=== PATIENT | female | born 1965 | race Caucasian/White ===

== ENCOUNTER 2018-05-26 07:09 | Inpatient (IN) ==
[2018-05-26] MEDS ORDERED: Acetaminophen 325 MG Tablet PO PRN (11:28)
[2018-05-26] MEDS ORDERED: Bisacodyl 10 MG Supp RECTAL PRN (11:28)
--- NOTE | 2018-05-26 15:21 | P.HP ---
History of Present Illness Primary Care Physician: UNKNOWN Chief Complaint: Abdominal pain History of Present Illness: 52-year-old female with known history of kidney stones, Gastrosoft reflux who presented to hospital with acute onset of right upper abdominal pain , nausea, vomiting, diarrhea. Patient states that she is normal state of health until 3 AM this morning when she woke up with a discomfort in her abdomen. She indicates that she thought that she had to go to the bathroom so she went into the restroom and noted that she was constipated and then got sudden pain in her right upper abdomen radiating into her back. Shortly after that she started having loose stools which continued into watery diarrhea. She started developing nausea and vomiting and because of the pain, intractable nausea, vomiting, diarrhea she went to the emergency department for evaluation. Patient had workup done and shows acute signs of dehydration with renal insufficiency, leukocytosis. Urinalysis does indicate signs of urinary tract infection. CT scan showing chronic staghorn calculus in the left lower pole without any signs of urinary obstruction. It was recommended by the ER physician that the patient be observed in the hospital for continued management. Patient does have extensive history of renal lithiasis. States that approximately a year ago she required a nephrostomy tube on the left side with percutaneous removal of a stone. The patient had nephrostomy tube removed. Patient states that approximately a year ago she also had complications with renal lithiasis and was told that she continue to have a stone at that time, however she deferred nephrostomy tube. - Diagnosis (1) Pyelonephritis (2) Leukocytosis Review of Systems All other systems reviewed negative except as stated in HPI Gastrointestinal: Reports abdominal pain, Reports loose stools, Reports nausea, Reports vomiting PMFSH - History History Provided By: Patient - Medical History Medical History: Medical History (Last Reviewed 05/26/18 @ 15:12 by PEACE Meza) GERD (gastroesophageal reflux disease) Kidney stones - Surgical History Surgical History: Surgical History (Last Updated 05/26/18 @ 15:13 by PEACE Meza) History of nephrostomy H/O tubal ligation - Family History Family History: Family History (Last Updated 05/26/18 @ 15:13 by PEACE Meza) Father Family history of diabetes mellitus - Tobacco History Second Hand Smoke Exposure: Yes Smoking Status: Current every day smoker Tobacco Type: Cigarettes - Alcohol History How Often Do You Have a Drink Containing Alcohol: Monthly or less - Substance Use History Substance History: No History of Abuse Medications and Allergies Active Medications: Active Medications Acetaminophen (Tylenol) 650 mg PO Q4H PRN PRN Reason: Temp > 100.4 Al Hydroxide/Mg Hydroxide (Milk Of Magnesia Liq) 30 ml PO Q12H PRN PRN Reason: Mild Constipation Bisacodyl (Dulcolax Supp) 10 mg RECTAL DAILY PRN PRN Reason: SEVERE CONSITIPATION Enoxaparin Sodium (Lovenox Inj) 30 mg SQ Q24H CUBA Sodium Chloride (Ns Inj) 1,000 mls @ 100 mls/hr IV.CONT .Q10H CUBA Piperacillin/Tazobactam/Dextrose (Zosyn 3.375 Gm Premix) 50 mls @ 100 mls/hr IV.SIG Q8H CUBA Lactulose (Lactulose Liq) 30 ml PO DAILY PRN PRN Reason: SEVERE CONSITIPATION Ondansetron HCl (Zofran Inj) 4 mg IV.PUSH Q6H PRN PRN Reason: NAUSEA OR VOMITING Senna/Docusate Sodium (Ann-Colace) 1 tab PO BID CUBA Sennosides (Senokot) 17.2 mg PO Q12H PRN PRN Reason: Moderate Constipation Sodium Chloride (Ns Flush) 2 ml IV.FLUSH BID CUBA Sodium Chloride (Ns Flush) 2 ml IV.FLUSH PRN PRN PRN Reason: FLUSH AFTER USING IV ACCESS Allergies Allergy/AdvReac Type Severity Reaction Status Date / Time iodine Allergy Severe Hives Verified 05/26/18 07:31 Home Medications Medication Instructions Recorded Confirmed Type esomeprazole magnesium [Nexium] 40 mg PO DAILY 05/26/18 05/26/18 History Exam Narrative: GENERAL: Well-developed, well-nourished, in no acute distress. alert and orientated HEENT: Head is normocephalic without any lesions or masses noted. Facial features are symmetric. Eyes: Pupils equal round reactive to light. Extraocular muscles are intact. Conjunctivae were clear. Oropharyngeal: Pharynx without any erythema edema. Tongue is midline without deviation. Buccal mucosa is moist without any masses or lesions NECK: Supple without any masses. Trachea midline no deviation. No JVD, no bruits are appreciated CARDIAC: Regular rhythm, regular rate. S1/S2 are heard. No murmurs gallops or rubs. LUNGS: Clear to auscultation bilaterally. No wheeze, rhonchi or rales. No use of accessory muscles on inspiration or expiration. ABDOMEN: Soft, nontender. Nondistended. Bowel sounds heard in all 4 quadrants. No organomegaly or masses. Negative rebound, negative guarding EXTREMITIES: No edema, pulses are equal bilaterally. No cyanosis or clubbing NEUROLOGY: Mood and affect appear appropriate. Cranial nerves II through XII grossly intact. Muscle strength 5/5 in upper and lower extremities bilaterally. Deep tendon reflexes are 2+ in upper and lower extremities bilaterally. Caprini VTE Risk Assessment Caprini VTE Risk Assessment: No/Low Risk (score <= 1) Caprini Risk Assessment Model: Point Value = 1 Point Value = 2 Point Value = 3 Point Value = 5 Age 41-60 Minor surgery BMI > 25 kg/m2 Swollen legs Varicose veins or History of unexplained or recurrent spontaneous Oral contraceptives or hormone replacement Sepsis (< 1 month) Serious lung disease, including pneumonia (< 1 month) Abnormal pulmonary function Acute myocardial infarction Congestive heart failure (< 1 month) History of inflammatory bowel disease Medical patient at bed rest Age 61-74 Arthroscopic surgery Major open surgery (> 45 min) Laparoscopic surgery (> 45 min) Malignancy Confined to bed (> 72 hours) Immobilizing plaster cast Central venous access Age >= 75 History of VTE Family history of VTE Factor V Leiden Prothrombin [id number] Lupus anticoagulant Anticardiolipin antibodies Elevated serum homocysteine Heparin-induced thrombocytopenia Other congenital or acquired thrombophilia Stroke (< 1 month) Elective arthroplasty Hip, pelvis, or leg fracture Acute spinal cord injury (< 1 month) Prophylaxis Regimen: Total Risk Factor Score Risk Level Prophylaxis Regimen 0-1 Low Early ambulation 2 Moderate Order ONE of the following: *Sequential Compression Device (SCD) *Heparin 5000 units SQ BID 3-4 Higher Order ONE of the following medications: *Heparin 5000 units SQ TID *Enoxaparin/Lovenox 40 mg SQ daily (WT < 150 kg, CrCl > 30 mL/min) *Enoxaparin/Lovenox 30 mg SQ daily (WT < 150 kg, CrCl > 10-29 mL/min) *Enoxaparin/Lovenox 30 mg SQ BID (WT < 150 kg, CrCl > 30 mL/min) AND/OR *Sequential Compression Device (SCD) 5 or more Highest Order ONE of the following medications: *Heparin 5000 units SQ TID (Preferred with Epidurals) *Enoxaparin/Lovenox 40 mg SQ daily (WT < 150 kg, CrCl > 30 mL/min) *Enoxaparin/Lovenox 30 mg SQ daily (WT < 150 kg, CrCl > 10-29 mL/min) *Enoxaparin/Lovenox 30 mg SQ BID (WT < 150 kg, CrCl > 30 mL/min) AND *Sequential Compression Device (SCD) Assessment and Plan - Assessment (1) Pyelonephritis Code(s): N12 - Tubulo-interstitial nephritis, not specified as acute or chronic Status: Acute (2) Leukocytosis Code(s): D72.829 - Elevated white blood cell count, unspecified Status: Acute - Plan Pyelonephritis -Patient does have urinary tract infection with significant leukocytosis -Patient started on empirical antibiotic with Zosyn -Continue to monitor cultures for appropriate antibiotics Nausea, vomiting, diarrhea -Possible gastroenteritis -Continue IV fluids -Continue antiemetic -Advance diet as tolerated -Obtain C. difficile culture Azotemia -Likely secondary to the above -Continue monitor renal function Leukocytosis -Multifactorial with patient having infection, dehydration, possible reactive to nausea, vomiting -Patient is on empirical antibiotics -Continue monitor CBC Gastroesophageal reflux -Continue proton pump inhibitor DVT prevention -Subcutaneous Lovenox -Sequential compression devices
[2018-05-26] MEDS: Piperacil/Tazo 3.375 GM Premix 50 ML IV.SIG SCH ×2 (17:05→21:56)
[2018-05-26] MEDS: Enoxaparin Inj 30 MG/0.3 ML Syringe SQ SCH (17:23)
[2018-05-26] MEDS: Sod Chloride 0.9% Inj 1,000 ML IV.CONT SCH ×2 (17:23→22:45)
[2018-05-26 20:19] LABS: Bilirubin,Urine Negative (Negative); Clarity,Urine Cloudy (Clear); Color,Urine Yellow (Yellw/Straw); Glucose,Urine (UA) Negative (Negative); Leukocyte Esterase,Urine Moderate (Negative); Nitrite,Urine Negative (Negative); Urobilinogen,Urine 0.2 mg/dL (Less than 2)
[2018-05-26 20:23] LABS: Amorphous Sediment,Urine Few /hpf; Bacteria,Urine Occasional /hpf; Squamous Epithelial Cell,Urine 0-5 /hpf (0-5); WBC,Urine 21-50 /hpf (0-5)
[2018-05-26] MEDS: Senna/Docusate Sodium 8.6/50 MG Tablet PO SCH (20:54)
[2018-05-27] MEDS: Piperacil/Tazo 3.375 GM Premix 50 ML IV.SIG SCH ×3 (04:05→21:09)
[2018-05-27] MEDS: Sod Chloride 0.9% Inj 1,000 ML IV.CONT SCH (04:05)
[2018-05-27 06:40] LABS: Baso % (Auto) 0.2 % (0.0-2.0); Eos # (Auto) 0.2 th/mm3 (0.0-0.4); Eos % (Auto) 2.7 % (0.0-4.0); Hematocrit 35.2 % (35.0-46.0); Hemoglobin 11.3 gm/dL (11.6-15.3); Lymph # (Auto) 2.3 th/mm3 (1.0-4.8); Lymph % (Auto) 26.7 % (9.0-44.0); Mean Corpuscular HGB Conc 32.1 % (32.0-36.0); Mean Corpuscular Hemoglobin 28.2 pg (27.0-34.0); Mean Platelet Volume 8.1 fL (7.0-11.0); Mono # (Auto) 0.5 th/mm3 (0.0-0.9); Mono % (Auto) 5.9 % (0.0-8.0); Neut # (Auto) 5.6 th/mm3 (1.8-7.7); Neut % (Auto) 64.5 % (16.0-70.0); Platelet Count 286 th/mm3 (150-450); Red Cell Distribution Width 14.2 % (11.6-17.2); White Blood Count 8.6 th/mm3 (4.0-11.0)
[2018-05-27 07:27] LABS: Calcium 7.4 mg/dL (8.5-10.1); Carbon Dioxide 26.4 meq/L (21.0-32.0)
[2018-05-27 07:42] LABS: Albumin 2.6 g/dL (3.4-5.0); Calcium-Albumin Corrected 8.5 mg/dL (8.5-10.1)
--- NOTE | 2018-05-27 08:09 | P.PNIM ---
Subjective Interval history: 52-year-old female who is seen examined today for pyelonephritis, intractable nausea and vomiting, diarrhea. Patient states that she is doing much better. She is no longer having any nausea vomiting. Tolerating liquid diet. She states that she still having loose stools. Vital signs are stable. Patient remains afebrile. Physical Exam Vital signs: Vital Signs 05/26/18 15:01 05/26/18 20:00 05/27/18 00:00 Temperature 98.3 F 98.8 F 99.3 F Pulse Rate 80 81 80 Respiratory Rate 20 20 20 Blood Pressure 138/74 134/66 119/57 L Pulse Oximetry 97 97 96 Intake & Output 05/26/18 05/27/18 05/27/18 18:59 06:59 18:59 Intake Total 300 / 300 1150 / 1150 Output Total 200 / 200 Balance 100 / 100 1150 / 1150 Weight 97.6 kg Intake: IV 1150 / 1150 NS Inj 1,000 ML @ 100 mls/hr IV 1000 / 1000 .CONT .Q10H CUBA Rx#:[id number] Zosyn 3.375 GM Premix 50 ML @ 150 / 150 100 mls/hr IV.SIG Q8H CUBA Rx#: [id number] Oral 300 / 300 Output: Urine 200 / 200 Other: # Voids 3 Date of Last Bowel Movement 05/26/18 Narrative: GENERAL: Well-developed, well-nourished, in no acute distress. alert and orientated HEENT: Head is normocephalic without any lesions or masses noted. Facial features are symmetric. Eyes: Extraocular muscles are intact. Conjunctivae were clear. NECK: Supple without any masses. Trachea midline no deviation. No JVD, CARDIAC: Regular rhythm, regular rate. S1/S2 are heard. No murmurs gallops or rubs. LUNGS: Clear to auscultation bilaterally. No wheeze, rhonchi or rales. No use of accessory muscles on inspiration or expiration. ABDOMEN: Soft, nontender. Nondistended. Bowel sounds heard in all 4 quadrants. No organomegaly or masses. Negative rebound, negative guarding EXTREMITIES: No edema, pulses are equal bilaterally. No cyanosis or clubbing NEUROLOGY: Mood and affect appear appropriate. Cranial nerves II through XII grossly intact. Moving all extremities, speech is clear Results - Labs CBC & Chem 7: 05/27/18 04:58 05/27/18 04:58 Laboratory Results - last 24 hr 05/26/18 05/27/18 05/27/18 20:00 04:58 04:58 CBC w Diff Auto diff final WBC 8.6 D RBC 4.00 Hgb 11.3 L D Hct 35.2 MCV 88.0 MCH 28.2 MCHC 32.1 RDW 14.2 Plt Count 286 MPV 8.1 Neut % (Auto) 64.5 Lymph % (Auto) 26.7 [place] % (Auto) 5.9 Eos % (Auto) 2.7 Baso % (Auto) 0.2 Neut # (Auto) 5.6 Lymph # (Auto) 2.3 [place] # (Auto) 0.5 Eos # (Auto) 0.2 Baso # (Auto) 0.0 WBC Differential . Differential Comment . Sodium 142 Potassium 3.0 L Chloride 107 Carbon Dioxide 26.4 Anion Gap 9 BUN 14 Creatinine 0.74 Estimated GFR 82 L Random Glucose 80 Calcium 7.4 L* D Calcium Adj for Albumin 8.5 Albumin 2.6 L D Urine Color Yellow Urine Clarity Cloudy H Urine pH 6.0 Ur Specific [place] 1.020 Urine Protein Negative Urine Glucose (UA) Negative Urine Ketones Negative Urine Occult Blood Large H Urine Nitrate Negative Urine Bilirubin Negative Urine Urobilinogen 0.2 Ur Leukocyte Esterase Moderate H Urine RBC 4-15 H Urine WBC 21-50 H Urine WBC Clumps Few H Ur Squamous Epith Cells 0-5 Amorphous Sediment Few H Urine Bacteria Occasional H Micro UA Comment Culture indicated Ur Microscopic Review Microscopic reviewed Urine Culture Comments Culture indicated Assessment and Plan - Assessment (1) Pyelonephritis Code(s): N12 - Tubulo-interstitial nephritis, not specified as acute or chronic Status: Inactive (2) Leukocytosis Code(s): D72.829 - Elevated white blood cell count, unspecified Status: Acute - Plan Pyelonephritis -Patient does have urinary tract infection with significant leukocytosis -Continue empirical antibiotic with Zosyn -Continue to monitor cultures for appropriate antibiotics Nausea, vomiting, resolved -Possible gastroenteritis -Continue IV fluids -Continue antiemetic -Advance diet as tolerated Diarrhea -Awaiting C. difficile results Azotemia, resolved -Likely secondary to the above -Continue monitor renal function Leukocytosis, resolved -Multifactorial with patient having infection, dehydration, possible reactive to nausea, vomiting -Patient is on empirical antibiotics -Continue monitor CBC Gastroesophageal reflux -Continue proton pump inhibitor DVT prevention -Subcutaneous Lovenox -Sequential compression devices Discharge Planning: Anticipate discharge once urine culture is final for appropriate antibiotics within the 24-48 hours
[2018-05-27] MEDS: Senna/Docusate Sodium 8.6/50 MG Tablet PO SCH ×2 (09:39→21:10)
[2018-05-27] MEDS: Enoxaparin Inj 30 MG/0.3 ML Syringe SQ SCH (15:42)
[2018-05-28] MEDS: Piperacil/Tazo 3.375 GM Premix 50 ML IV.SIG SCH (04:31)
[2018-05-28] MEDS: Senna/Docusate Sodium 8.6/50 MG Tablet PO SCH (08:07)
[2018-05-28 08:27] VITALS: BP 136/74; PULSE 63; RESP 20; TEMP 96.6; O2SAT 97
--- NOTE | 2018-05-28 08:30 | P.DS ---
Date of admission: 05/26/18 13:19 Primary care physician: UNKNOWN Attending physician on discharge: Alina Villarreal Anticipated date of discharge: 05/28/18 Brief History from admission: 52-year-old female with known history of kidney stones, Gastrosoft reflux who presented to hospital with acute onset of right upper abdominal pain , nausea, vomiting, diarrhea. Patient states that she is normal state of health until 3 AM this morning when she woke up with a discomfort in her abdomen. She indicates that she thought that she had to go to the bathroom so she went into the restroom and noted that she was constipated and then got sudden pain in her right upper abdomen radiating into her back. Shortly after that she started having loose stools which continued into watery diarrhea. She started developing nausea and vomiting and because of the pain, intractable nausea, vomiting, diarrhea she went to the emergency department for evaluation. Patient had workup done and shows acute signs of dehydration with renal insufficiency, leukocytosis. Urinalysis does indicate signs of urinary tract infection. CT scan showing chronic staghorn calculus in the left lower pole without any signs of urinary obstruction. It was recommended by the ER physician that the patient be observed in the hospital for continued management. Patient does have extensive history of renal lithiasis. States that approximately a year ago she required a nephrostomy tube on the left side with percutaneous removal of a stone. The patient had nephrostomy tube removed. Patient states that approximately a year ago she also had complications with renal lithiasis and was told that she continue to have a stone at that time, however she deferred nephrostomy tube. DS: Diagnosis - Discharge Diagnosis (1) Pyelonephritis Status: Inactive (2) Leukocytosis Status: Acute DS: Medications - Discharge Medications Prescriptions: amoxicillin-pot clavulanate [Augmentin] 1 tab PO BID #10 tab DS: Summary Hospital Course: 52-year-old female who originally presented to the [place] emergency department for abdominal pain, nausea, vomiting. Patient does have history of kidney stones where she has had previous percutaneous removal of stones. Patient had workup done in the emergency department and found to have sepsis with leukocytosis, urinary tract infection, tachycardia. CT scan did indicate staghorn calculi in the kidney without any signs of obstruction. Patient was admitted to the hospital with IV antibiotics include Zosyn, IV fluids. Patient nausea and vomiting resolved and she has been tolerating a diet quite well. Patient laboratory studies were followed which continue to improve on a daily basis. Patient had cultures ascertained and the initial culture did show greater than 100,000 colonies of predominant gram-positive cocci possible contamination and follow-up culture indicating no growth. Patient has clinically improved, clinically stable at this time. Patient is very eager to go home. Patient will be discharged home with outpatient follow-up. - Time Spent with Patient Total time spent providing and/or coordinating discharge services: Greater than 30 minutes - Quality: VTE Deep Vein Thrombosis/Pulmonary Embolism Present on Admission: No Exam Vital signs: Vital Signs 05/27/18 12:00 05/27/18 16:00 05/27/18 20:00 Temperature 97.3 F L 97.6 F 97.7 F Pulse Rate 74 69 62 Respiratory Rate 20 20 18 Blood Pressure 147/66 H 128/69 104/58 L Pulse Oximetry 98 96 96 05/28/18 00:00 05/28/18 08:00 Temperature 97.6 F 96.6 F L Pulse Rate 60 63 Respiratory Rate 18 20 Blood Pressure 102/60 136/74 Pulse Oximetry 98 97 Intake & Output 05/27/18 05/28/18 05/28/18 18:59 06:59 18:59 Intake Total 860 / 860 100 / 100 Balance 860 / 860 100 / 100 Weight 98.9 kg Intake: IV 50 / 50 100 / 100 Zosyn 3.375 GM Premix 50 ML @ 50 / 50 100 / 100 100 mls/hr IV.SIG Q8H CUBA Rx#: [id number] Oral 810 / 810 Other: # Voids 6 4 # Bowel Movements 3 Narrative: GENERAL: Well-developed, well-nourished, in no acute distress. alert and orientated HEENT: Head is normocephalic without any lesions or masses noted. Facial features are symmetric. Eyes: Extraocular muscles are intact. Conjunctivae were clear. NECK: Supple without any masses. Trachea midline no deviation. No JVD, CARDIAC: Regular rhythm, regular rate. S1/S2 are heard. No murmurs gallops or rubs. LUNGS: Clear to auscultation bilaterally. No wheeze, rhonchi or rales. No use of accessory muscles on inspiration or expiration. ABDOMEN: Soft, nontender. Nondistended. Bowel sounds heard in all 4 quadrants. No organomegaly or masses. Negative rebound, negative guarding EXTREMITIES: No edema, pulses are equal bilaterally. No cyanosis or clubbing NEUROLOGY: Mood and affect appear appropriate. Cranial nerves II through XII grossly intact. Moving all extremities, speech is clear Results Procedures completed during hospitalization: None Labs on day of discharge: Labs from last 24 hours 05/27/18 00:30 Stl C.difficile DNA Amp Negative St C. diff Tox Epid 027 Negative Preliminary micro results at discharge 05/26/18 20:27 Urine Culture - Preliminary Random Urine No growth in 24 hours Discharge Plan - Discharge Disposition Patient Disposition: Discharge Home - Discharge Condition Condition: Stable - Discharge Order Discharge Orders: Discharge Order (Routine); Ordered 05/28/18 Ordered By: Stuart Escobar - Discharge Details Anticipated Discharge Date: 05/28/18 - Physicians Team Primary Care Provider: UNKNOWN, Attending Provider: Alina Villarreal - Rxs /Orders / Referrals /Forms Prescriptions: New amoxicillin-pot clavulanate [Augmentin] 875-125 mg Tablet 1 tab PO BID Qty: 10 RF: 0 Continue esomeprazole magnesium [Nexium] 40 mg Capsule,Delayed Release(Dr/Ec) 40 mg PO BID Referrals: UNKNOWN, [Primary Care Provider] - See Instructions - Post Discharge Care Plan Care Plan Goals: Your Health Problems: Goals to Promote Your Health: * To prevent worsening of your condition * To maintain your health at the optimal level Directions to Meet Your Goals: * Take your medications as prescribed * Follow your dietary instruction * Follow activity as directed * Keep your appointments as scheduled * Take your immunizations and boosters as scheduled * If your symptoms worsen call your PCP * If no PCP go to Urgent Care or Emergency Room Smoking is dangerous to your health. Avoid second hand smoke. You may reach the 24-hour crisis hotline for domestic abuse at .
== END 2018-05-28 11:32 | disposition home or self-care (01) ==
LOC: PH3 07:09 → PHEDDLT 07:09 → OBSVTOIN 11:28
PROVIDERS: ADMIT Internal Medicine; ATTEND Internal Medicine